=== PATIENT | female | born 1980 | race Two or more races ===

== ENCOUNTER 2022-10-20 10:03 | Outpatient (CLI) | payer OTHER | END 2022-10-20 10:19 | disposition home or self-care (01) | LOC: TOM 10:03 | PROVIDERS: ATTEND Surgery | DX: C18.7 Malignant neoplasm of sigmoid colon (principal); R59.0 Localized enlarged lymph nodes; K59.09 Other constipation; R10.9 Unspecified abdominal pain; K56.51 Intestinal adhesions [bands], with partial obstruction ==

== ENCOUNTER 2022-10-25 09:56 | Inpatient (IN) | payer OTHER ==
[~2022-10-25] VITALS: Ht 157.5 cm; Wt 81.2 kg
[2022-11-04] MEDS ORDERED: NEURONTIN300 MG PO (11:25)
[2022-11-04] MEDS ORDERED: ACETAMINOPHEN500 M2 PO (11:25)
== END 2022-11-04 13:15 | disposition home or self-care (01) | DRG 331 ==
LOC: O/R 11-01 06:00 → SURG 11-01 09:45
PROVIDERS: Internal Medicine Geriatric Medicine; Surgery; ADMIT Surgery; ATTEND Surgery
PROC: 0DBP4ZZ Excision of Rectum, Percutaneous Endoscopic Approach (ICD-10-PCS; 2022-11-01)
PROC: 0DJD8ZZ Inspection of Lower Intestinal Tract, Via Natural or Artificial Opening Endoscopic (ICD-10-PCS; 2022-11-01)
PROC: 0DTN4ZZ Resection of Sigmoid Colon, Percutaneous Endoscopic Approach (ICD-10-PCS; principal; 2022-11-01 10:15)
DX: C18.7 Malignant neoplasm of sigmoid colon (principal); R59.0 Localized enlarged lymph nodes; N73.6 Female pelvic peritoneal adhesions (postinfective); N99.4 Postprocedural pelvic peritoneal adhesions; D50.0 Iron deficiency anemia secondary to blood loss (chronic); Z20.822 Contact with and (suspected) exposure to COVID-19

== ENCOUNTER 2022-12-09 07:11 | Day surgery (SDC) | payer OTHER ==
[~2022-12-09 07:11] MED LIST: ACETAMINOPHEN500 M2 PO; NEURONTIN300 MG PO
[2022-12-09] MEDS ORDERED: TRAM1TAB98 PO (10:19)
== END 2022-12-09 12:45 | disposition home or self-care (01) ==
LOC: CIR.AMB 07:11
PROVIDERS: ATTEND Surgery
DX: C18.7 Malignant neoplasm of sigmoid colon (principal); R59.0 Localized enlarged lymph nodes; K59.09 Other constipation; K56.51 Intestinal adhesions [bands], with partial obstruction